=== PATIENT | female | born 1960 | race Caucasian/White ===

== ENCOUNTER 2023-07-27 07:33 | Day surgery (SDC) | payer OTHER ==
[2023-07-24 13:48] VITALS: BMI 25.7
[2023-07-27] MEDS ORDERED: LIDOCAINE HCL/PF 2% SDV 5ML VIAL ONE (08:00)
[2023-07-27] MEDS ORDERED: PROPOFOL 160 ML ONE (08:01)
[2023-07-27 08:45] VITALS: TEMP 97.7
[2023-07-27 09:07] VITALS: BP 114/71; PULSE 65; RESP 18
== END 2023-07-27 09:31 | disposition home or self-care (01) ==
LOC: FASU-ENDO 07:33
PROVIDERS: ATTEND Internal Medicine Gastroenterology
PROC: 0DB78ZX Excision of Stomach, Pylorus, Via Natural or Artificial Opening Endoscopic, Diagnostic (ICD-10-PCS; 2023-07-27)
PROC: 0DB48ZX Excision of Esophagogastric Junction, Via Natural or Artificial Opening Endoscopic, Diagnostic (ICD-10-PCS; 2023-07-27)
PROC: 0DB98ZX Excision of Duodenum, Via Natural or Artificial Opening Endoscopic, Diagnostic (ICD-10-PCS; principal; 2023-07-27 08:23)
DX: K21.00 Gastro-esophageal reflux disease with esophagitis, without bleeding (principal); K29.50 Unspecified chronic gastritis without bleeding
CPT/HCPCS: 88305-TC; 88342-TC